=== PATIENT | female | born 1945 | race African-American/Black ===

== ENCOUNTER 2019-07-22 15:43 | Emergency (ER) | payer MEDICARE, MEDICAID ==
[~2019-07-22] VITALS: Ht 160 cm; Wt 88.4 kg
[~2019-07-22 15:43] MED LIST: LIDOcaine 1% W/epiNEPHrine 1:100,000 20ml vial ONE
[2019-07-22 16:01] VITALS: BP 156/80
--- NOTE | 2019-07-22 17:00 | NUR ---
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
[2019-07-22] MEDS ORDERED: BACDS PO (17:18)
--- NOTE | 2019-07-22 17:54 | NUR ---
MARKED RT BREAST WITH SKIN PIN WHERE REDNESS IS
== END 2019-07-22 17:57 | disposition home or self-care (01) ==
LOC: ER 15:43
DX: N61.1 Abscess of the breast and nipple (principal); Z79.2 Long term (current) use of antibiotics
CPT/HCPCS: 10060; 99283